=== PATIENT | female | born 1955 | race Caucasian/White ===

== ENCOUNTER 2019-07-06 10:54 | Inpatient (IN) ==
[2019-07-01 13:20] LABS: Appearance,Urine CLOUDY; Bacteria,Urine 0 /hpf (0); Bilirubin,Urine NEG (NEG); Color,Urine YELLOW; Culture Indicated,Urine NO; Glucose,Urine (UA) NEGATIVE (NEG); Ketones,Urine NEG (NEG); Leukocyte Esterase,Urine NEG /uL (NEG); Mucus,Urine FEW /hpf (0); Nitrate,Urine NEG (NEG); Protein,Urine 30 mg/dL (NEG); Urine Amorphous Crystals MANY /hpf (0); Urine Blood NEG mg/dL (<0.03); Urine RBC 1 /hpf (0-1); Urine Squamous Epithelial Cell 1 /hpf (0-4); Urine WBC 0 /hpf (0-4); Urobilinogen,Urine NEG (NEG)
[2019-07-01 13:33] LABS: Basophils # (Auto) 0.05 K/mcL (0.00-0.30); Basophils % (Auto) 1.1 % (0.0-2.0); Blood Urea Nitrogen 16 mg/dl (8-23); Carbon Dioxide 27 mmol/L (22-30); Eosinophils # (Auto) 0.14 K/mcL (0.00-0.70); Glomerular Filtration Rate 97; Glucose 102 mg/dL (70-105); Granulocytes % (Auto) 53.5 % (38.0-78.0); Hematocrit 40.7 % (34.1-44.9); Lymphocytes # (Auto) 1.44 K/mcL (1.50-4.80); Lymphocytes % (Auto) 30.5 % (15.5-49.0); Mean Cell Volume 88.1 fL (80.0-100.0); Mean Corpuscular HGB Conc 34.4 g/dL (31.0-36.0); Mean Platelet Volume 9.6 fL (7.4-10.4); Monocytes # (Auto) 0.56 K/mcL (0.10-0.90); Monocytes % (Auto) 11.9 % (1.0-12.0); Platelet Count 283 K/mcL (140-440); RBC 4.62 M/mcL (3.59-5.38); Red Cell Distribution Width 12.3 % (11.5-14.5); WBC 4.7 K/mcL (4.50-11.00)
[2019-07-01 13:34] LABS: Chloride 94 mmol/L (96-108)
[2019-07-01 14:30] LABS: INR 0.9 (0.9-1.1); Prothrombin Time 12.2 sec (11.9-14.5)
[~2019-07-06 10:54] MED LIST: ACETAMINOPHEN 500 MG TABLET PO SCH; CELECOXIB 200 MG CAPSULE PO SCH; IPRATROPIUM/ALBUTEROL 3 ML AMPUL.NEB NEB PRN; PREGABALIN 75 MG CAPSULE PO SCH; SCOPOLAMINE 1 PATCH PATCH TOPICAL PRN; ceFAZolin 2 GM in DEXTROSE 5% IN WATER 50 ML IV SCH; oxyCODONE 10 MG TAB.ER.12H PO SCH
[2019-07-06] MEDS ORDERED: fentaNYL 250 MCG/5 ML VIAL IV ONE (13:47)
[2019-07-06] MEDS ORDERED: ONDANSETRON 4 MG/2 ML VIAL IV ONE (13:47)
[2019-07-06] MEDS ORDERED: GLYCOPYRROLATE 0.2 MG/ML VIAL IV ONE (13:47)
[2019-07-06] MEDS ORDERED: DEXAMETHASONE 10 MG/ML VIAL IV ONE (13:47)
[2019-07-06] MEDS ORDERED: KETAMINE 100 MG/ML ML IV ONE (13:47)
[2019-07-06] MEDS ORDERED: LIDOCAINE HCL/PF 100 MG/5 ML SYRINGE IV ONE (13:47)
[2019-07-06] MEDS ORDERED: TRANEXAMIC ACID 1,000 MG/10 ML VIAL IV ONE (13:47)
[2019-07-06] MEDS ORDERED: SUCCINYLCHOLINE 20 MG/ML ML IV ONE (13:47)
[2019-07-06] MEDS ORDERED: PROPOFOL 200 MG/20 ML VIAL IV ONE (13:47)
[2019-07-06] MEDS ORDERED: GENTAMICIN SULFATE 800 MG/20 ML VIAL IR ONE (14:14)
[2019-07-06] MEDS ORDERED: BUPIVACAINE W/EPI 0.5% 50 ML VIAL IJ ONE (14:45)
[2019-07-06] MEDS ORDERED: TRIAMCINOLONE ACETONIDE 40 MG/ML VIAL IM ONE (14:47)
[2019-07-06] MEDS ORDERED: DEXAMETHASONE 10 MG/ML VIAL IM ONE (14:47)
[2019-07-06] MEDS ORDERED: BUPIVACAINE 0.5% 50 ML VIAL IJ ONE (14:48)
[2019-07-06] MEDS ORDERED: diphenhydrAMINE 50 MG/ML VIAL IV PRN (14:48)
[2019-07-06] MEDS ORDERED: NALOXONE HCL 0.4 MG/ML VIAL IV PRN (14:48)
[2019-07-06] MEDS ORDERED: ONDANSETRON 4 MG/2 ML VIAL IV PRN ×2 (14:48→15:16)
[2019-07-06] MEDS ORDERED: PROMETHAZINE 25 MG/ML VIAL IV PRN (14:48)
[2019-07-06] MEDS ORDERED: IPRATROPIUM/ALBUTEROL 3 ML AMPUL.NEB NEB PRN (14:48)
[2019-07-06] MEDS ORDERED: MEPERIDINE 25 MG/ML SYRINGE IV PRN (14:48)
[2019-07-06] MEDS ORDERED: LACTATED RINGERS 250 ML IV PRN (14:48)
[2019-07-06] MEDS ORDERED: HYDROmorphone 2 MG/ML VIAL IV PRN ×2 (14:48→15:16)
[2019-07-06] MEDS ORDERED: LACTATED RINGERS 1,000 ML IV SCH (15:00)
[2019-07-06] MEDS ORDERED: FLEETS ADULT ENEMA PR PRN (15:16)
[2019-07-06] MEDS ORDERED: TRANEXAMIC ACID 1,000 MG/10 ML VIAL IV SCH (15:16)
[2019-07-06] MEDS ORDERED: BENZOCAINE/MENTHOL 1 LOZENGE PO PRN (15:16)
[2019-07-06] MEDS ORDERED: MAGNESIUM HYDROXIDE 30 ML ORAL.SUSP PO PRN (15:16)
[2019-07-06] MEDS ORDERED: POLYETHYLENE GLYCOL 3350 17 GM PACKET PO PRN (15:16)
[2019-07-06] MEDS ORDERED: KETOROLAC 15 MG/ML VIAL IV PRN (15:16)
[2019-07-06] MEDS ORDERED: BISACODYL 10 MG SUPP.RECT PR PRN (15:16)
[2019-07-06] MEDS ORDERED: ACETAMINOPHEN 325 MG TABLET PO PRN (15:16)
--- NOTE | 2019-07-06 15:16 | Brief Operative Note ---
Date of procedure: 07/06/19 Pre-op diagnosis: right shoulder dislocation chronic left shoulder djd Post-op diagnosis: same Procedure: right shoulder revision humeral component and left shoulder injection Grafts/Implants: Yes Anesthesia: GETA Surgeon: Harpreet Phillips Swatch Clerk: Orlin Ventura Estimated blood loss (cc): 100 Specimens Removed/Pathology: none sent Condition: stable Disposition: PACU
--- NOTE | 2019-07-06 15:19 | Discharge Summary ---
Ortho Discharge - TSA - Patient Instructions Diet: Regular Diet Activity: activity as tolerated, weight bearing as tolerated Total Shoulder Protocol: Leave immobilizer in place except for bathing and ROM. Abduction pillow. Continue to wear sling until seen by physician. Codman Pendulum : These exercises use momentum produced by your body to move your shoulder joint. Bend your knees and shift your weight to your front leg, then back, allowing your arm to swing in the same directions. Using the same technique, alternately shift your weight between your right and left legs, allowing your arm to swing from side to side. These exercises are also performed in counterclockwise and clockwise circular motions. Typically these exercises are performed several times per day, for a set number repetitions or minutes, such as 20 times in a row or 5 minutes at a time. Dressing Care: May shower in 2 days - Follow Up Plan Follow Up Appointments: Orlin Ventura PA-C [Physician Brush Hand] - 07/21/19 1:40 pm Disposition: Home, Self-Care Prognosis: Good Rehab Potential: Good I certify that the patient requires SNF services: No Overall status at discharge: patient is progressing back to baseline - Orders For Discharge Prescriptions: Docusate Sodium [Colace] 100 mg PO BID #60 cap Transmission Status: Pending to [facility][id number] Hydrocodone/APAP 7.5/325Mg [[place] 7.5-325Mg] 1 tab PO Q4-6HP PRN #75 tab PRN Reason: Pain Prescription Printed
--- NOTE | 2019-07-06 16:03 | XRay Report ---
HISTORY: Postop revision of right shoulder prosthesis FINDINGS: there is a well-positioned reverse total shoulder prosthesis. There is no fracture or resorption of bone around the hardware. Distal end of the clavicle has been resected. There are two ventricular peritoneal shunt catheters extending from the right side of the neck, across the right chest wall to the abdomen. IMPRESSION: well-positioned right shoulder prosthesis Interpreted and Authenticated by: Darrick Pop 07/06/19
--- NOTE | 2019-07-06 16:17 | Operative Note ---
DATE OF OPERATION: 07/06/2019 PREOPERATIVE DIAGNOSES: 1. Chronic dislocation of the right shoulder. 2. Left shoulder degenerative arthritis. POSTOPERATIVE DIAGNOSES: 1. Chronic dislocation of the right shoulder. 2. Left shoulder degenerative arthritis. PROCEDURE: 1. Right shoulder revision removing the humeral component and replacing it with a thicker baseplate and poly and constrained liner. This seemed to fit very nicely, and it was stable throughout the arc of motion and could not get it to dislocate. 2. Left shoulder injection with steroids for severe degenerative arthritis SURGEON: Harpreet Phillips M.D. CABINETMAKER MAINTENANCE: Orlin Ventura PA-C. The PA's assistance was required for the safe and efficient completion of the entire case. This provider's expertise and technical skill were required throughout the case. The PA assisted with preoperative coordination, intraoperative retraction, wound closure, dressing and splint application, as well as postoperative documentation and care coordination. COMPLICATIONS: None. ESTIMATED BLOOD LOSS: About 100 mL. DESCRIPTION OF PROCEDURE: The patient was brought to the operating room and put to sleep with general LMA anesthesia. Once asleep, the patient had the right arm sterilely prepped and draped in the usual sterile fashion. Ioban was placed over the skin and deltopectoral interval was created. I exposed the joint and quite a bit of fluid within this region as the shoulder has been dislocated chronically. It was clear. It did not appear to have any infection in the fluid. At this point we reduced the shoulder, and it did sublux with the extremes of motion. We then removed the baseplate from the humeral component and the poly liner. Once done, we were able to trial different components. We did a +5 humeral-sided plate and this made it very stable. We irrigated thoroughly. We were able to then reduce the shoulder with the final implant which was a +5 baseplate with a dished liner. This seemed to give it excellent stability and once reduced, we took the arm again through range of motion, making it very stable and showing an excellent range of motion. We irrigated thoroughly and closed the interval with #1 Stratafix. We closed the skin with Stratafix and adhesive closure. The patient tolerated this well. There were no complications. Blood loss was about 100 mL. We also injected the left shoulder. The left shoulder had degenerative arthritis and was injected in the acromioclavicular joint, subacromial space, and glenohumeral joint with 1 mL of Kenalog, 1 mL of Decadron and 4 mL of Carbocaine. The patient tolerated this well. There were no complications with the injection of the shoulder. VIANNEY:alize Job ID: [id number] Doc ID: [id number] Harpreet Phillips MD
[2019-07-06] MEDS: LACTATED RINGERS 1,000 ML IV SCH (16:19)
[2019-07-06] MEDS ORDERED: TEMAZEPAM 15 MG CAPSULE PO PRN (21:00)
[2019-07-06] MEDS ORDERED: SENNOSIDES 1 TABLET PO SCH (21:00)
[2019-07-06] MEDS: oxyCODONE/APAP 5/325MG TABLET PO PRN (21:02)
[2019-07-06] MEDS: ceFAZolin 1 GM VIAL IV SCH (21:03)
[2019-07-06] MEDS: DOCUSATE SODIUM 100 MG CAPSULE PO SCH (21:04)
[2019-07-06] MEDS: 0.9 % SODIUM CHLORIDE 10 ML SYRINGE IV SCH (21:24)
[2019-07-07] MEDS: LACTATED RINGERS 1,000 ML IV SCH (00:59)
[2019-07-07] MEDS: ceFAZolin 1 GM VIAL IV SCH (04:32)
[2019-07-07] MEDS: 0.9 % SODIUM CHLORIDE 10 ML SYRINGE IV SCH (04:45)
--- NOTE | 2019-07-07 07:43 | Orthopedic Progress Note ---
Subjective Patient information: Note initiated : 07/07/19 at 7:42 am Service Date, if different from initiated Date: [] Patient: Leyla Flower 64 y/o F admitted on 07/06/19 for Right Total Shoulder Arthroplasty Revision. Chief Complaint: [Pt is stable this morning on post operative day 1 without any significant concerns or complaints. Patients vital signs have remained stable. Patients dressing is dry and is grossly intact from a neurovasc ular and motor standpoint. Patients 10 point ROS is otherwise negative. ] Objective Vital signs: Vital Signs Temp Pulse Resp BP Pulse Ox 07/07/19 07:00 67 07/07/19 03:30 98.0 F 67 12 131/70 93 07/06/19 22:42 97.9 F 66 12 125/68 94 07/06/19 19:47 98.6 F 66 12 150/76 92 07/06/19 18:00 56 L 174/87 95 07/06/19 17:30 54 L 186/86 94 07/06/19 17:00 56 L 187/88 95 07/06/19 16:45 51 L 181/82 97 07/06/19 16:30 53 L 190/90 90 07/06/19 15:45 97.9 F 53 L 14 160/70 98 07/06/19 15:30 56 L 13 131/71 100 07/06/19 15:20 53 L 14 107/57 99 07/06/19 15:17 97.3 F 55 L 14 96/48 95 07/06/19 12:00 98.0 F 59 L 18 153/85 95 Intake and Output 07/06/19 07/07/19 07/07/19 21:59 05:59 13:59 Intake Total 1190 967 400 Output Total 600 350 Balance 590 967 50 Intake: IV 867 Lactated Ringers 1,000 ml @ 100 867 mls/hr IV .Q10H [facility] Rx#: [id number] Oral 240 100 400 IV - Manual Only 950 Output: Void Amount 550 350 Estimated Blood Loss 50 Other: Meal Dinner Percent of Meal Consumed 100% Feeding Ability Independent Urine Appearance Clear Clear Urine Color Bright Yellow Bright Yellow Urine Odor Normal Normal Weight 211 lb 9.6 oz Intake & Output: Intake & Output 07/06/19 07/07/19 07/07/19 21:59 05:59 13:59 Intake Total 1190 967 400 Output Total 600 350 Balance 590 967 50 Weight 211 lb 9.6 oz Intake: IV 867 Lactated Ringers 1,000 ml @ 100 867 mls/hr IV .Q10H [facility] Rx#: [id number] Oral 240 100 400 IV - Manual Only 950 Output: Void Amount 550 350 Estimated Blood Loss 50 Other: Meal Dinner Percent of Meal Consumed 100% Feeding Ability Independent Urine Appearance Clear Clear Urine Color Bright Yellow Bright Yellow Urine Odor Normal Normal Incision: Yes healing Incision clean and dry: Yes Dressing: Yes clean Weight bearing status: full Neurological exam IM: Yes motor sensory intact, Yes neurovascular intact Extremities exam IM: Yes neurovascular intact - Labs CBC & BMP: 07/01/19 10:32 07/01/19 10:32 Labs: Orthopedic Labs 07/01/19 10:31 PT 12.2 INR 0.9 APTT 07/01/19 10:32 Hgb 14.0 Hct 40.7 Assessment and Plan (1) History of reverse total replacement of right shoulder joint The patient has been educated regarding dressing care, Physical Therapy recommendations, home exercises, restrictions, and follow up appointments. The patient has had all necessary DME prescribed. The patient has remained relatively stable during their hospital course. Leave Dermabond patch intact until followup Status: Acute
[2019-07-07] MEDS: DOCUSATE SODIUM 100 MG CAPSULE PO SCH (09:03)
[2019-07-07] MEDS: oxyCODONE/APAP 5/325MG TABLET PO PRN (09:04)
== END 2019-07-07 10:45 | disposition home or self-care (01) | DRG 483 ==
LOC: MEDSUR 10:54
PROVIDERS: ADMIT Orthopaedic Surgery; ATTEND Orthopaedic Surgery